=== PATIENT | male | born 1975 | race Caucasian/White ===

== ENCOUNTER 2022-05-23 11:46 | Outpatient (CLI) | payer BC ==
[2022-05-23 13:58] LABS: #Basophils 0.1 10x3/uL (0.0-0.2); #Eosinphils 0.2 10x3/uL (0.0-0.5); #Monocytes 0.5 10x3/uL (0.0-1.1); #Neutrophils 2.6 10x3/uL (1.5-8.4); %Basophils 1.1 % (0.0-2.0); %Eosinophils 2.7 % (0.0-6.0); %Lymphocytes 38.8 % (18.0-47.0); %Monocytes 8.9 % (0.0-10.0); %Neutrophils 47.6 % (40.0-75.0); Hemoglobin 14.1 g/dL (13.5-17.5); Mean Corpuscular HGB CONC 34.6 g/dL (32.0-36.0); Mean Corpuscular Volume 86.6 fl (81.2-95.1); Mean Platelet Volume 11.5 fl (7.4-10.4); Platelet Count 289 10x3/uL (150-450); RBC Distribution Width 12.6 % (11.5-14.5); White Blood Cell (WBC) Count 5.5 10x3/uL (3.5-10.5)
[2022-05-23 14:10] LABS: Anion Gap 15 mmol/L (10-20); BUN (Urea Nitrogen) 14 mg/dL (8.9-20.6); Calc. Creatinine Clearance 0 mL/min (70-130); Calcium 9.8 mg/dL (7.8-10.44); Carbon Dioxide 25 mmol/L (22-29); Chloride 107 mmol/L (98-107); Estimated GFR 111; Glucose 81 mg/dL (70-105); Potassium 4.6 mmol/L (3.5-5.1); Sodium 142 mmol/L (136-145)
== END 2022-05-23 11:47 | disposition home or self-care (01) ==
LOC: LABBT 11:46
PROVIDERS: ATTEND Specialist
DX: Z01.812 Encounter for preprocedural laboratory examination (principal); K40.91 Unilateral inguinal hernia, without obstruction or gangrene, recurrent
CPT/HCPCS: 80048; 85025

== ENCOUNTER 2022-05-30 06:42 | Day surgery (SDC) | payer BC ==
[2022-05-28 16:17] VITALS: BMI 30.7
[2022-05-30] MEDS ORDERED: Acetaminophen 500 MG TAB ONE (07:44)
[2022-05-30] MEDS ORDERED: Ketorolac Tromethamine 30 MG/ML VIAL ONE (07:44)
[2022-05-30] MEDS ORDERED: Bupivacaine/Epinephrine 0.25% 30 ML VIAL ONE (08:59)
[2022-05-30] MEDS ORDERED: Midazolam HCl 2 mg/2 ml Vial ONE (10:04)
[2022-05-30] MEDS ORDERED: Fentanyl 250 MCG/5 ML VIAL ONE (10:04)
[2022-05-30] MEDS ORDERED: CEFAZOLIN 2 GM VIAL ONE (10:08)
[2022-05-30] MEDS ORDERED: Sodium Chloride 0.9% 100 ML ONE (10:08)
[2022-05-30] MEDS ORDERED: PROPOFOL 200 MG/20 ML VIAL ONE (10:19)
[2022-05-30] MEDS ORDERED: Ondansetron PF 4 MG/2 ML Vial ONE (10:19)
[2022-05-30] MEDS ORDERED: Dexamethasone 20 MG/5 ML VIAL ONE (10:19)
[2022-05-30] MEDS ORDERED: Esmolol 100 MG/10 ML VIAL ONE (10:19)
[2022-05-30] MEDS ORDERED: Lidocaine 1% PF 5 ML VIAL ONE (10:19)
[2022-05-30] MEDS ORDERED: Rocuronium Bromide 10 MG/ML (10ML VIAL) ONE (10:19)
[2022-05-30] MEDS ORDERED: HYDROmorphone 2 MG/ML VIAL SLOW IVP PRN (12:13)
[2022-05-30] MEDS ORDERED: Meperidine HCl/PF 25 MG/ML VIAL SLOW IVP PRN (12:13)
== END 2022-05-30 14:53 | disposition home or self-care (01) ==
LOC: SDC 06:42
PROVIDERS: ATTEND Specialist
PROC: 8E0W4CZ Robotic Assisted Procedure of Trunk Region, Percutaneous Endoscopic Approach (ICD-10-PCS; principal; 2022-05-30)
PROC: 0YU64JZ Supplement Left Inguinal Region with Synthetic Substitute, Percutaneous Endoscopic Approach (ICD-10-PCS; principal; 2022-05-30)
DX: K40.31 Unilateral inguinal hernia, with obstruction, without gangrene, recurrent (principal)
CPT/HCPCS: C1781; J1100; J1885; J2250; J2405; J2704; J3010; J3490